=== PATIENT | female | born 1980 | race American Indian/Alaskan Native ===

== ENCOUNTER 2018-09-01 15:33 | Inpatient (IN) | payer MEDICAID ==
[2018-09-01 17:58] LABS: Hematocrit 35.1 % (30.3-42.9); Hemoglobin 12.1 gm/dl (10.1-14.3); Mean Corpuscular HGB Conc 34 % (30-34); Mean Corpuscular Volume 89 fl (79-97); Red Blood Count 3.93 M/mm3 (3.65-5.03); Red Cell Distribution Width 16.6 % (13.2-15.2)
[2018-09-01 18:00] LABS: Platelet Count 124 K/mm3 (140-440)
--- NOTE | 2018-09-01 18:06 | Ultrasound Report ---
ULTRASOUND OBSTETRIC-LIMITED Indication: REGAN and Placental position Findings: There is a single, living intrauterine . Fetus in cephalic presentation. The placenta is fun dus and to the left in position. Placenta is a grade 2. Alpha index is 7.1 cm heart rate is 146 beats per minute. Impression: Single, living intrauterine with estimated sonographic age of 38 weeks, 1 day(s). Please se e comments Signer Name: Vinayak Hall MD Signed: 09/01/2018 6:01 PM Workstation Name: [id number]
[2018-09-01] MEDS ORDERED: PITOCin/NS 30 UNIT/500ML 30,000 MILLIUNITS/500 ML BAG IV ONE (18:16)
[2018-09-01] MEDS ORDERED: LACTATED RINGERS 1,000 ML ONE (18:53)
[2018-09-01] MEDS ORDERED: XYLOCAINE 2% INFILTRATI ONE (20:45)
[2018-09-01] MEDS ORDERED: BRETHINE SUB-Q PRN (20:45)
[2018-09-01] MEDS ORDERED: BRETHINE IVP PRN (20:45)
[2018-09-01] MEDS ORDERED: ZOFRAN IV PRN (20:45)
[2018-09-01] MEDS ORDERED: SUBLIMAZE IV PRN (20:45)
[2018-09-01] MEDS ORDERED: NARCAN 0.4 MG/1 ML IV PRN (20:45)
[2018-09-01] MEDS ORDERED: PHENERGAN PR PRN (20:45)
--- NOTE | 2018-09-01 20:50 | History and Physical Report ---
History of Present Illness Date of examination: 09/01/18 Date of admission: 09/01/18 15:33 Chief complaint: Vaginal bleeding History of present illness: 38 yo AA Fe , GURJIT 09/14/18 (LMP) 38w 0d, presents from [facility] with vaginal bleeding and questionable LOF. Pt initiated early care with [facility] at 7 weeks gestation. Known risk factors: AMA (38yo), GDM A1(diet controlled), Hemoglobic C trait, Anemia (ferrous sulfate 325mg PO BID), Vitamin D deficiency (D3 supplement), Marginal Previa (Posterior placenta with marginal cord insertion 07/29), Elevated 24 hr protein (08/20/18 :633). Upon admission to hospital today OBUS reveals posterior fundal placenta. 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 denies: smoking, alcohol abuse, prescription drug abuse, IV drug use - Obstetrical History Expected Date of Delivery: 09/14/18 Actual Gestation: 38 Week(s) 2 Day(s) : 5 Para: 2 Hx # Term Pregnancies: 2 Number of Pregnancies: 0 Spontaneous Abortions: 2 Induced : 0 Number of Living Children: 2 #1 Gender: Female year: 2,010 Method of Delivery: Vaginal Gestational age at delivery: 37 Complications: other (GDM A1) #2 Infant Gender: Female year: 2,014 Method of Delivery: Vaginal Gestational age at delivery: 38 Complications: other (GDM A!) Medications and Allergies Allergies Allergy/AdvReac Type Severity Reaction Status Date / Time No Known Allergies Allergy Unverified 12/30/13 18:20 Home Medications Medication Instructions Recorded Confirmed Last Taken Type No Known Home Medications [No 12/31/13 12/31/13 Unknown History Reported Home Medications] Active Meds: Active Medications Ephedrine Sulfate (Ephedrine Sulfate) 10 mg IV Q2M PRN PRN Reason: Hypotension Oxytocin/Sodium Chloride (Pitocin/Ns 30 Unit/500ml) 30,000 milliunits in 500 mls @ 4 mls/hr IV DIRECT ONE; Protocol Stop: 09/06/18 23:15 Last Admin: 09/01/18 19:25 Dose: 4 milliunits/min, 4 mls/hr Documented by: Oxytocin/Sodium Chloride (Pitocin/Ns 20 Unit/1000ml Drip) 20 units in 1,000 mls @ 125 mls/hr IV DIRECT DANDRE Oxytocin/Sodium Chloride (Pitocin/Ns 30 Unit/500ml) 30 units in 500 mls @ 4 mls/hr IV TITR DANDRE; Protocol Lactated Ringer's (Lactated Ringers) 1,000 mls @ 125 mls/hr IV DIRECT DANDRE Lidocaine (Xylocaine 2%) 20 ml INFILTRATI ONCE ONE Stop: 09/01/18 20:46 Terbutaline Sulfate (Brethine) 0.25 mg SUB-Q ONCE PRN PRN Reason: Hyperstimulation/Hypertonicity Terbutaline Sulfate (Brethine) 0.25 mg IVP ONCE PRN PRN Reason: Hyperstimulation/Hypertonicity Review of Systems Eyes: normal appearance Cardiovascular: no chest pain, no shortness of breath Respiratory: no shortness of breath Gastrointestinal: no abdominal pain, no nausea, no vomiting, no diarrhea, no constipation Genitourinary: normal appearance, vaginal discharge (normal show), contractions (mild), no leakage of fluid Integumentary: no rash, no sores, no lesions - Vital Signs Vital signs: Vital Signs Pulse BP 95 H 116/77 09/01/18 16:13 09/01/18 16:13 Temp Pulse Resp BP Pulse Ox 98.6 F 90 12 121/81 09/01/18 16:15 09/01/18 18:26 09/01/18 16:15 09/01/18 18:26 - Physical Exam Breasts: Positive: normal Cardiovascular: Regular rate, Normal S1, Normal S2, No murmurs Lungs: Positive: Clear to auscultation, Normal air movement Abdomen: Positive: normal appearance, soft, normal bowel sounds. Negative: distention Genitourinary (Female): Positive: normal external genitalia, normal perenium Vulva: both: normal Vagina: Positive: normal moisture (bloody show) Uterus: Positive: enlarged (gravid) Anus/Rectum: Positive: normal perianal skin Extremities: Positive: normal Deep Tendon Reflex Grade: Normal +2 - Obstetrical FHR: category 1 Uterine Contraction Monitor Mode: External Cervical Dilatation: 2 (On admission) Uterine Contraction Pattern: Irregular Uterine Tone Measurement Phase: Resting Uterine Contraction Intensity: Mild Results Result Diagrams: 09/01/18 17:00 Abnormal lab results 09/01/18 Range/Units 17:00 WBC 11.2 H (4.5-11.0) K/mm3 RDW 16.6 H (13.2-15.2) % Plt Count 124 L (140-440) K/mm3 All other labs normal. Assessment and Plan A: Term IUP at 38w1d Bloody show Category 1 tracing GBS Negtive OBUS: Fundal placenta GDM A1 diet controlled P: Admit to L&D Pitocin Augmentation May have IV pain med/epidural PRN Anticipate
[2018-09-01] MEDS ORDERED: PITOCin/NS 30 UNIT/500ML 30 UNITS/500 ML BAG IV SCH (21:00)
[2018-09-01] MEDS ORDERED: LACTATED RINGERS 1,000 ML IV SCH (21:00)
[2018-09-02] MEDS: PITOCin/NS 20 UNIT/1000ML DRIP 20 UNITS/1,000 ML BAG IV SCH ×2 (02:30→04:52)
[2018-09-02] MEDS ORDERED: XYLOCAINE 2% INFILTRATI ONE (02:46)
[2018-09-02] MEDS ORDERED: NORCO 5/325 PO PRN (03:30)
[2018-09-02] MEDS ORDERED: MILK OF MAGNESIA PO PRN (03:30)
[2018-09-02] MEDS ORDERED: PHENERGAN PO PRN (03:30)
[2018-09-02] MEDS ORDERED: LANSINOH TP PRN (03:30)
[2018-09-02] MEDS ORDERED: TUCKS PAD TP PRN (03:30)
[2018-09-02] MEDS ORDERED: ZOFRAN IV PRN (03:30)
[2018-09-02] MEDS ORDERED: BENADRYL PO PRN (03:30)
[2018-09-02] MEDS ORDERED: DULCOLAX PR PRN (03:30)
[2018-09-02] MEDS ORDERED: ANUCORT-HC PR PRN (03:30)
[2018-09-02] MEDS ORDERED: TYLENOL PO PRN (03:30)
--- NOTE | 2018-09-02 03:37 | Procedure Note ---
OB Delivery Note - Delivery Date of Delivery: 09/02/18 (0229) Surgeon: SHERIDAN LEAVITT (JEMIMA) Estimated blood loss: other (400cc) - Vaginal Delivery presentation: vertex, face or brow (Brow presentation, rotated to OA for delivery) Intrapartum events: gestational hypertension Delivery induction: oxytocin Delivery monitor: external FHT, external uterine Route of delivery: (02:29) Delivery placenta: spontaneous Delivery cord: nuchal cord (x1 loose), 3 umbilical vessels Episiotomy: none Delivery laceration: vaginal side wall (2nd degree bilateral vaginal laceration) Delivery repair: vicryl (2-0 CT) Anesthesia: local Delivery comments: Called to the pt room by nurse to find baby brow presentation. During maternal resting, was repositioned to vertex and delivered ALISHA, loose nuchal x1, delivered intact via somersault maneuver with pushing efforts at 02:29. Vigorous to maternal abdomen. Cord clamped then cut by myself. Cord blood collected per protocol. Spontaneous quiroz delivery of intact placenta with 3VC at 02:32. Fundus boggy@U-1. Lg amt bleeding. 300cc yellow urine via red rubber catheter then FF@U-2. Bilateral 2nd degree vaginal wall laceration repaired under local anesthesia using 2-[address] Pt tolerated well. EBL 400cc. Infant and mother left in stable condition in L&D. - Infant A at 1 minute: 8 at 5 minutes: 9 Infant Gender: Male (3553 grams, 7lbs 13 oz, 19.5")
[2018-09-02] MEDS ORDERED: SODIUM CHLORIDE FLUSH SYRINGE 10 ML IV NR (04:00)
[2018-09-02] MEDS ORDERED: CYTOTEC ONE ×2 (04:33)
[2018-09-02] MEDS ORDERED: METHERGINE IM ONE ×2 (04:34→05:12)
--- NOTE | 2018-09-02 04:49 | Event Note ---
Date: 09/02/18 (04:28) Called to pt room by nurse to evaluate bleeding. Fundus boggy, massaged to firm with moderate amt of clots. Vazquez catheter inserted without difficulty. 200cc clear yellow urine to bag. Pt noted to be tachycardic with B/P 76/45, 77/51 Methergine 0.2 IM x1. Cytotec 1000 placed [place]. IVF with pitocin to bolus rate. [place] care given. FF@U-1, bleeding small. B/P then 136/78. Will continue to monitor in L&D at this time
[2018-09-02] MEDS ORDERED: CYTOTEC PR ONE (05:12)
[2018-09-02] MEDS: IBUPROFEN PO SCH (11:36)
[2018-09-02 15:17] LABS: Hematocrit 25.6 % (30.3-42.9); Hemoglobin 8.9 gm/dl (10.1-14.3)
[2018-09-03] MEDS: IBUPROFEN PO SCH ×4 (00:37→23:20)
[2018-09-03 09:55] LABS: Alanine Aminotransferase 8 units/L (7-56); Albumin 2.8 g/dL (3.9-5); BUN/Creatinine Ratio 14; Blood Urea Nitrogen 7 mg/dL (7-17); Calcium 8.2 mg/dL (8.4-10.2); Hemolysis Index 3
[2018-09-03] MEDS: FEOSOL PO SCH ×2 (11:01→21:46)
--- NOTE | 2018-09-03 11:54 | Progress Note ---
Assessment and Plan A: day 1 S/P spontaneous vaginal delivery. Anemia secondary to and blood loss. GDM, diet controlled. PIH, history of hemorrhage. P: Repeat H&H, platelet count, CMP, and urinalysis today. Iron supplementation. Subjective - Subjective Date of service: 09/03/18 Principal diagnosis: day 1 S/P Interval history: day 1 S/P spontaneous vaginal delivery. GDM diet controlled and PIH with her . Had hemorrhage on 09/02/18. Patient states she is feeling well. She reports small amount of lochia and no large clots. Patient denies headache, dizziness, cough, shortness of breath, chest pain, abdominal pain, leg pain, nausea or vomiting, or heavy bleeding. Ambulating well, voiding without difficulty, tolerating a regular diet. BPs stable. Patient reports: appetite normal, voiding normally, pain well controlled, flatus, ambulating normally, no dizzy ambulation, no nauseated : doing well Objective - Vital Signs Latest vital signs: Vital Signs Temp Pulse Resp BP BP Pulse Ox 09/03/18 07:56 98.5 F 118 H 18 117/74 100 09/03/18 06:59 18 09/03/18 05:59 18 09/03/18 01:13 97.8 F 20 104/74 09/02/18 17:40 98.6 F 108 H 20 138/93 09/02/18 12:50 98.9 F 125 H 20 122/88 Intake and Output 09/02/18 09/03/18 09/03/18 23:59 07:59 15:59 Intake Total 120 120 600 Output Total 450 Balance -330 120 600 Intake: Oral 120 120 120 Intake, Free Water 480 Output: Urine 450 Void 450 Other: Total, Intake Amount 120 120 120 Total, Output Amount 450 # Voids Void 1 1 1 - Exam Abdomen: Present: normal appearance, soft. Absent: distention, tenderness, guarding, rigidity Uterus: Present: normal, firm, fundal height below umbilicus. Absent: bogginess, tenderness Extremities: Present: normal. Absent: tenderness, edema - Labs Labs: Abnormal lab results 09/02/18 09/03/18 09/03/18 Range/Units 15:06 09:28 09:28 Hgb 8.9 L D (10.1-14.3) gm/dl Hct 25.6 L D (30.3-42.9) % Plt Count 106 L (140-440) K/mm3 Chloride 107.2 H (98-107) mmol/L Carbon Dioxide 21 L (22-30) mmol/L Creatinine 0.5 L (0.7-1.2) mg/dL Glucose 102 H (65-100) mg/dL Calcium 8.2 L (8.4-10.2) mg/dL Total Bilirubin 1.30 H (0.1-1.2) mg/dL Total Protein 4.9 L (6.3-8.2) g/dL Albumin 2.8 L (3.9-5) g/dL
[2018-09-03 12:24] LABS: Hemoglobin 6.7 gm/dl (10.1-14.3)
[2018-09-03 12:32] LABS: Hematocrit 20.1 % (30.3-42.9)
[2018-09-03] MEDS ORDERED: NACL 0.9% 500 ML 500 ML IV NR (13:50)
[2018-09-04] MEDS: IBUPROFEN PO SCH ×3 (05:56→18:25)
[2018-09-04] MEDS: FEOSOL PO SCH ×2 (10:49→21:37)
[2018-09-04 10:52] LABS: Hematocrit 28.5 % (30.3-42.9); Hemoglobin 9.9 gm/dl (10.1-14.3)
--- NOTE | 2018-09-04 11:32 | Progress Note ---
Assessment and Plan A: day 2 S/P vaginal delivery. Severe anemia which required a blood transfusion; currently receiving iron supplementation as well. Gestational diabetes with the . induced hypertension vs. preeclampsia with the . P: Continue oral iron supplementation. Monitor BPs one more day due to PIH/possible preeclampsia during last week of . Advised patient she will need a glucose tolerance test at her 6 week checkup. Advised her of need to continue to avoid sweets and processed foods and follow a healthy meal plan such as the Mediterranean diet. Anticipate discharge tomorrow if BPs remain stable and patient continues to do well. Subjective - Subjective Date of service: 09/04/18 Principal diagnosis: day 2 S/P Interval history: day 2 S/P spontaneous vaginal delivery. GDM diet controlled and PIH vs. preeclampsia with her . Had hemorrhage on 09/02/18. Patient had severe anemia with fatigue and tachycardia and required blood transfusion yesterday. Patient states she is feeling better. She reports small amount of lochia and no large clots. Patient denies headache, dizziness, cough, shortness of breath, chest pain, abdominal pain, leg pain, nausea or vomiting, or heavy bleeding. Patient reports she feels much less tired now that she has received blood transfusion. Ambulating well, voiding without difficulty, tolerating a regular diet. BPs stable. Patient reports: appetite normal, voiding normally, pain well controlled, flatus, ambulating normally, no dizzy ambulation, no nauseated [place]: doing well Objective - Vital Signs Latest vital signs: Vital Signs Temp Pulse Resp BP Pulse Ox 09/04/18 08:33 98.0 F 93 H 18 131/86 99 09/04/18 06:56 18 09/04/18 05:56 18 09/04/18 00:20 18 09/03/18 23:54 98.7 F 105 H 18 126/77 100 09/03/18 23:24 98.7 F 107 H 18 131/80 98 09/03/18 23:20 18 09/03/18 22:54 98.9 F 102 H 18 140/85 99 09/03/18 22:24 98.6 F 103 H 18 137/83 98 09/03/18 21:54 98.9 F 107 H 18 129/81 99 09/03/18 21:24 98.9 F 109 H 18 114/72 99 09/03/18 20:54 99.0 F 106 H 16 138/80 99 09/03/18 20:39 99.0 F 115 H 18 124/79 99 09/03/18 18:53 98.2 F 99 H 16 113/75 100 09/03/18 18:30 97.8 F 100 H 16 115/77 100 09/03/18 18:00 97.8 F 100 H 16 115/77 100 09/03/18 17:55 98.1 F 101 H 18 100/70 100 09/03/18 17:30 98.1 F 100 H 16 115/72 100 09/03/18 17:00 98.2 F 110 H 18 97/65 100 09/03/18 16:30 98.3 F 110 H 16 100/66 100 09/03/18 16:15 98.1 F 113 H 16 124/89 100 Intake and Output 09/03/18 09/04/18 09/04/18 23:59 07:59 15:59 Intake Total 1100 370 360 Output Total 600 Balance 500 370 360 Intake: IV 10 Left Wrist 10 Oral 120 120 120 Intake, Free Water 720 240 Blood Product 250 250 Leukoreduced Red Blood 0 250 Cells Unit [id number] Leukoreduced Red Blood 250 Cells Unit [id number] Output: Urine 600 Void 600 Other: Total, Intake Amount 120 120 120 Total, Output Amount 600 # Voids Void 1 1 2 - Exam Abdomen: Present: normal appearance, soft. Absent: distention, tenderness, guarding, rigidity Uterus: Present: normal, firm, fundal height below umbilicus. Absent: bogginess, tenderness Extremities: Present: normal. Absent: tenderness, edema - Labs Labs: Abnormal lab results 09/01/18 09/03/18 09/04/18 Range/Units 17:00 09:25 10:44 Hgb 6.7 L 9.9 L D (10.1-14.3) gm/dl Hct 20.1 L 28.5 L D (30.3-42.9) % Crossmatch See Detail
[2018-09-05] MEDS: IBUPROFEN PO SCH ×3 (00:16→11:21)
--- NOTE | 2018-09-05 10:36 | Progress Note ---
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 Patient reports: appetite normal, voiding normally, pain well controlled, ambulating normally, no dizzy ambulation : doing well, nursing well Objective - Vital Signs Latest vital signs: Vital Signs Temp Pulse Resp BP BP Pulse Ox 09/05/18 08:15 98.4 F 80 20 111/76 09/05/18 07:00 18 09/05/18 06:00 18 09/05/18 01:16 18 09/05/18 00:33 97.7 F 77 18 122/73 100 09/05/18 00:16 18 09/04/18 19:25 18 09/04/18 16:22 98.6 F 84 18 116/88 100 Intake and Output 09/04/18 09/05/18 09/05/18 23:59 07:59 15:59 Intake Total 1090 420 120 Balance 1090 420 120 Intake: IV 10 Left Wrist 10 Oral 360 120 Intake, Free Water 720 420 Other: Total, Intake Amount 360 120 # Voids Void 3 1 1 - Exam Cardiovascular: Present: Regular rate Lungs: Present: Clear to auscultation Abdomen: Present: soft Vulva: both: laceration/episiotomy (well approximated second degree vaginal laceration) Uterus: Present: normal, firm, fundal height below umbilicus Extremities: Present: normal Comments: small lochia - Labs Labs: Abnormal lab results 09/04/18 Range/Units 10:44 Hgb 9.9 L D (10.1-14.3) gm/dl Hct 28.5 L D (30.3-42.9) %
--- NOTE | 2018-09-05 10:40 | Discharge Summary ---
Providers - Providers Date of Admission: 09/01/18 15:33 Date of discharge: 09/05/18 Attending physician: BRITTANY COLON MD Primary care physician: BRITTANY COLON MD Hospitalization Reason for admission: induction of labor, IUP at term Delivery: Episiotomy: none Laceration: 2nd degree complications: transfusion Discharge diagnosis: IUP at term delivered [place] baby: male Hospital course: Complicated by symptomatic anemia. S/P blood transfusion Condition at discharge: Stable Disposition: DC-01 TO HOME OR SELFCARE - Discharge Diagnoses (1) Status post normal vaginal delivery Status: Acute (2) Anemia due to blood loss, acute Status: Acute Comment: Asymptomatic Continue iron therapy Encouraged iron-rich foods Plan - Provider Discharge Summary Activity: routine, no sex for 6 weeks, no heavy lifting 4 weeks, no strenuous exercise Diet: routine Instructions: routine Additional instructions: [] Smoking cessation referral if applicable(refer to patient education folder for contact #) [] Refer to [facility]'s [facility] Center Booklet Call your doctor immediately for: * Fever > 100.5 * Heavy vaginal bleeding ( >1 pad per hour) * Severe persistent headache * Shortness of breath * Reddened, hot, painful area to leg or breast * Drainage or odor from incision. * Keep incision clean and dry at all times and follow doctor's instructions regarding bathing/showering - Follow up plan Follow up: BRITTANY COLON MD [Primary Care Provider] - 6 Weeks (Follow up at [facility] as needed or in 6 weeks for exam) Forms: [facility] Discharge Summary, Discharge Signature Page
[2018-09-05] MEDS: FEOSOL PO SCH (11:21)
[2018-09-05 13:42] VITALS: BP 138/78
== END 2018-09-05 12:35 | disposition home or self-care (01) | DRG 774 ==
LOC: LD 15:33 → OB 09-02 06:57
PROVIDERS: ADMIT Obstetrics & Gynecology; ATTEND Obstetrics & Gynecology
PROC: 3E033VJ Introduction of Other Hormone into Peripheral Vein, Percutaneous Approach (ICD-10-PCS; 2018-09-01)
PROC: 10E0XZZ Delivery of Products of Conception, External Approach (ICD-10-PCS; principal; 2018-09-02)
PROC: 0KQM0ZZ Repair Perineum Muscle, Open Approach (ICD-10-PCS; 2018-09-02)
PROC: 10S0XZZ Reposition Products of Conception, External Approach (ICD-10-PCS; 2018-09-02)
PROC: 30233N1 Transfusion of Nonautologous Red Blood Cells into Peripheral Vein, Percutaneous Approach (ICD-10-PCS; 2018-09-03)
DX: O13.4 Gestational [pregnancy-induced] hypertension without significant proteinuria, complicating childbirth (principal); O70.1 Second degree perineal laceration during delivery; Z3A.38 38 weeks gestation of pregnancy; Z37.0 Single live birth; O24.420 Gestational diabetes mellitus in childbirth, diet controlled; O69.81X0 Labor and delivery complicated by cord around neck, without compression, not applicable or unspecified; O99.89 Other specified diseases and conditions complicating pregnancy, childbirth and the puerperium; O32.3XX0 Maternal care for face, brow and chin presentation, not applicable or unspecified; R00.0 Tachycardia, unspecified; O90.81 Anemia of the puerperium; D62 Acute posthemorrhagic anemia; Z83.3 Family history of diabetes mellitus; Z82.49 Family history of ischemic heart disease and other diseases of the circulatory system
CPT/HCPCS: 36415; 76815; 80053; 85014; 85018; 85027; 85049; 86592; 86762; 86850; 86900; 86901; 86920; G0378; J2210; J2590; J3010; J3105; J7040; J7120; P9016

== ENCOUNTER 2021-01-06 11:34 | Outpatient (CLI) | payer BC ==
[2021-01-06 13:42] VITALS: BP 112/72
[2021-01-06] MEDS ORDERED: LACTATED RINGERS 1,000 ML IV ONE (15:00)
[2021-01-06 15:01] LABS: Bacteria,Urine 1+ /HPF (Negative); Bilirubin,Urine NEG (Negative); Blood,Urine SM (Negative); Color,Urine Yellow (Yellow); Protein,Urine <15 mg/dL mg/dL (Negative); Urobilinogen,Urine < 2.0 mg/dL (<2.0)
--- NOTE | 2021-01-06 15:25 | Ultrasound Report ---
ULTRASOUND BIOPHYSICAL PROFILE ULTRASOUND OB LIMITED INDICATION: SPOTTING TECHNIQUE: Transabdominal ultrasound imaging. COMPARISON: None FINDINGS: breathing movement = 2 Gross body movement = 2 tone = 2 Qualitative amniotic fluid volume = 2 Total biophysical score = 8/8 Amniotic fluid index is 9.6 cm. Presentation is cephalic. heart rate is 141 beats per minute. Placenta: Fundal, right lateral, grade 1. No evidence for abruption. IMPRESSION: biophysical profile equals 8/8. Signer Name: Alfredo Braun Jr, MD Signed: 01/06/2021 3:20 PM Workstation Name: [id number]
== END 2021-01-06 15:26 | disposition home or self-care (01) ==
LOC: TRG 11:34 → APU 11:48 → TRG 15:26
PROVIDERS: ATTEND Obstetrics & Gynecology
DX: O26.853 Spotting complicating pregnancy, third trimester (principal); O46.93 Antepartum hemorrhage, unspecified, third trimester; Z3A.32 32 weeks gestation of pregnancy
CPT/HCPCS: 59025; 76815; 76819; 81001

== ENCOUNTER 2021-03-18 12:07 | Emergency (ER) | payer BC | END 2021-03-18 15:59 | disposition left against medical advice (07) | LOC: ED 12:07 | DX: O14.90 Unspecified pre-eclampsia, unspecified trimester (principal); Z3A.00 Weeks of gestation of pregnancy not specified; Z53.21 Procedure and treatment not carried out due to patient leaving prior to being seen by health care provider ==